=== PATIENT | female | born 1960 | race Caucasian/White ===

== ENCOUNTER 2017-11-07 17:37 | Emergency (ER) | payer MEDICARE, OTHER ==
[2017-11-07] MEDS: morphine 4 MG/ML VIAL IV (20:31)
[2017-11-07] MEDS: TAMSULOSIN (SR) 0.4 MG CAP PO (20:33)
[2017-11-07] MEDS: KETOROLAC 30 MG INJ IV (20:33)
[2017-11-07] MEDS: ONDANSETRON 4 MG INJ IV (20:33)
[2017-11-07] MEDS: SOD CHLORIDE 0.9% 1,000 ML IV (20:34)
[2017-11-07 20:37] LABS: ADD MAN DIFF? NO
[2017-11-07 20:39] LABS: BASOPHIL # 0.1 10^3/ul (0.0-0.1); BASOPHILS % 0.5 % (0.0-2.0); EOSINOPHILS # 0.2 10^3/ul (0.0-0.5); HEMATOCRIT 42.5 % (37.0-47.0); HEMOGLOBIN 14.3 g/dl (12.0-16.0); LYMPHOCYTES % 42.5 % (15.0-51.0); MEAN CORPUSCULAR HGB CONC 33.6 g/dl (32.0-37.0); MEAN CORPUSCULAR VOLUME 89.3 fl (82.0-101.0); MEAN PLATELET VOLUME 10.2 fl (7.4-10.4); MONOCYTE # 0.7 10^3/ul (0.3-0.9); MONOCYTES % 7.9 % (0.0-11.0); NEUTROPHIL # 4.4 10^3/ul (1.6-7.5); NEUTROPHILS % 46.8 % (39.0-77.0); PLATELET COUNT 221 10^3/UL (140-415); RED BLOOD COUNT 4.76 10^6/ul (4.20-5.40); RED CELL DISTRIBUTION WIDTH 13.7 % (11.5-14.5)
[2017-11-07 20:39] LABS: WHITE BLOOD COUNT 9.4 10^3/ul (4.8-10.8)
[2017-11-07 20:59] LABS: ALANINE AMINOTRANSFERASE 30 IU/L (13-69); ALBUMIN 4.6 g/dl (3.3-4.9); ALBUMIN/GLOBULIN RATIO 1.53; ALKALINE PHOSPHATASE 80 IU/L (42-121); AMYLASE 61 U/L (11-123); ANION GAP 17 (8-16); ASPARTATE AMINO TRANSFERASE 27 IU/L (15-46); BILIRUBIN,INDIRECT 0.2 mg/dl (0-1.1); BILIRUBIN,TOTAL 0.2 mg/dl (0.2-1.3); BLOOD UREA NITROGEN 13 mg/dl (7-20); CALCIUM 10.9 mg/dl (8.4-10.2); CARBON DIOXIDE 29 mmol/L (21-31); CHLORIDE 103 mmol/L (97-110); CREATININE 0.65 mg/dl (0.44-1.00); GLUCOSE 91 mg/dl (70-220); LIPASE 175 U/L (23-300); POTASSIUM 4.6 mmol/L (3.5-5.1); SODIUM 144 mmol/L (135-144); TOTAL PROTEIN 7.6 g/dl (6.1-8.1)
[2017-11-07 21:10] LABS: ADD UMIC YES; TROPONIN-I < 0.012 ng/ml (0.00-0.12); UR AMORPHOUS CRYSTAL FEW /HPF (NONE SEEN); UR ASCORBIC ACID NEGATIVE (NEGATIVE); UR BILIRUBIN (Dip) NEGATIVE (NEGATIVE); UR BLOOD (Dip) NEGATIVE (NEGATIVE); UR CLARITY CLOUDY (CLEAR); UR COLOR YELLOW (YELLOW); UR GLUCOSE (Dip) NEGATIVE (NEGATIVE); UR KETONES (Dip) NEGATIVE (NEGATIVE); UR LEUKOCYTE ESTERASE (Dip) 2+ Leu/ul (NEGATIVE); UR NITRITE (Dip) NEGATIVE (NEGATIVE); UR RBC 2 /HPF (0-5); UR SPECIFIC GRAVITY (Dip) 1.014 (1.003-1.030); UR SQUAMOUS EPITHELIAL CELL FEW /HPF (FEW); UR TOTAL PROTEIN (Dip) NEGATIVE (NEGATIVE); UR UROBILINOGEN (Dip) NEGATIVE (NEGATIVE); UR WBC 21 /HPF (0-5)
[2017-11-07] MEDS: CEFTRIAXONE 1 GM/50 ML (PMX) 50 ML IVPB (21:40)
== END 2017-11-07 22:26 | disposition home or self-care (01) ==
LOC: FTE 17:37
DX: N20.0 Calculus of kidney (principal); N30.00 Acute cystitis without hematuria; R00.2 Palpitations
CPT/HCPCS: 74176; 80053; 81001; 82150; 83690; 84484; 85025; 87086; 93005; 96374; 96375; 99285-25

== ENCOUNTER 2018-01-27 16:34 | Emergency (ER) | payer MEDICARE, OTHER ==
[2018-01-27 19:23] LABS: ADD MAN DIFF? NO
[2018-01-27 19:25] LABS: BASOPHIL # 0.1 10^3/ul (0.0-0.1); BASOPHILS % 0.6 % (0.0-2.0); EOSINOPHILS # 0.2 10^3/ul (0.0-0.5); EOSINOPHILS % 1.7 % (0.0-7.0); HEMATOCRIT 42.8 % (37.0-47.0); LYMPHOCYTES # 3.7 10^3/ul (0.8-2.9); LYMPHOCYTES % 36.2 % (15.0-51.0); MEAN CORPUSCULAR HEMOGLOBIN 30.9 pg (29.0-33.0); MEAN CORPUSCULAR VOLUME 88.2 fl (82.0-101.0); MEAN PLATELET VOLUME 10.6 fl (7.4-10.4); MONOCYTE # 0.8 10^3/ul (0.3-0.9); MONOCYTES % 8.2 % (0.0-11.0); NEUTROPHIL # 5.4 10^3/ul (1.6-7.5); NEUTROPHILS % 52.9 % (39.0-77.0); PLATELET COUNT 218 10^3/UL (140-415); RED BLOOD COUNT 4.85 10^6/ul (4.20-5.40); RED CELL DISTRIBUTION WIDTH 13.1 % (11.5-14.5)
[2018-01-27 19:25] LABS: WHITE BLOOD COUNT 10.1 10^3/ul (4.8-10.8)
[2018-01-27] MEDS: SOD CHLORIDE 0.9% 1,000 ML IV (19:26)
[2018-01-27] MEDS: KETOROLAC 15 MG INJ IV (19:27)
[2018-01-27] MEDS: OXYCODONE/ACETAMINOPHEN (5/325) TAB PO (19:27)
[2018-01-27 19:46] LABS: ALANINE AMINOTRANSFERASE 23 IU/L (13-69); ALBUMIN 4.7 g/dl (3.3-4.9); ALBUMIN/GLOBULIN RATIO 1.46; ALKALINE PHOSPHATASE 61 IU/L (42-121); ANION GAP 15 (8-16); ASPARTATE AMINO TRANSFERASE 30 IU/L (15-46); BILIRUBIN,INDIRECT 0.3 mg/dl (0-1.1); BILIRUBIN,TOTAL 0.3 mg/dl (0.2-1.3); BLOOD UREA NITROGEN 12 mg/dl (7-20); CALCIUM 10.3 mg/dl (8.4-10.2); CARBON DIOXIDE 28 mmol/L (21-31); CHLORIDE 106 mmol/L (97-110); CREATININE 0.54 mg/dl (0.44-1.00); GLUCOSE 92 mg/dl (70-220); LIPASE 158 U/L (23-300); POTASSIUM 3.9 mmol/L (3.5-5.1); SODIUM 145 mmol/L (135-144); TOTAL PROTEIN 7.9 g/dl (6.1-8.1)
[2018-01-27 19:50] LABS: ADD UMIC YES; UR ASCORBIC ACID 20 mg/dL (NEGATIVE); UR BILIRUBIN (Dip) NEGATIVE (NEGATIVE); UR BLOOD (Dip) 1+ mg/dL (NEGATIVE); UR CLARITY CLEAR (CLEAR); UR COLOR YELLOW (YELLOW); UR GLUCOSE (Dip) NEGATIVE (NEGATIVE); UR KETONES (Dip) NEGATIVE (NEGATIVE); UR LEUKOCYTE ESTERASE (Dip) TRACE Leu/ul (NEGATIVE); UR MUCUS FEW /HPF (NONE SEEN); UR NITRITE (Dip) NEGATIVE (NEGATIVE); UR RBC 4 /HPF (0-5); UR SPECIFIC GRAVITY (Dip) 1.016 (1.003-1.030); UR TOTAL PROTEIN (Dip) NEGATIVE (NEGATIVE); UR UROBILINOGEN (Dip) NEGATIVE (NEGATIVE); UR WBC 6 /HPF (0-5)
== END 2018-01-27 20:50 | disposition home or self-care (01) ==
LOC: E/R 16:34
DX: N30.01 Acute cystitis with hematuria (principal); I10 Essential (primary) hypertension; E66.9 Obesity, unspecified
CPT/HCPCS: 36415; 80053; 81001; 83690; 85025; 96374; 99284-25

== ENCOUNTER 2018-04-16 16:19 | Emergency (ER) | payer MEDICARE, OTHER ==
[2018-04-16] MEDS: SOD CHLORIDE 0.9% 1,000 ML IV (18:02)
[2018-04-16] MEDS: ONDANSETRON 4 MG INJ IV ×2 (18:03→19:29)
[2018-04-16] MEDS: morphine 4 MG/ML VIAL IV (18:03)
[2018-04-16 18:31] LABS: ADD MAN DIFF? NO
[2018-04-16 18:37] LABS: WHITE BLOOD COUNT 8.8 10^3/ul (4.8-10.8)
[2018-04-16 18:37] LABS: BASOPHIL # 0.1 10^3/ul (0.0-0.1); BASOPHILS % 0.6 % (0.0-2.0); EOSINOPHILS # 0.2 10^3/ul (0.0-0.5); EOSINOPHILS % 1.9 % (0.0-7.0); HEMOGLOBIN 15.2 g/dl (12.0-16.0); LYMPHOCYTES # 3.8 10^3/ul (0.8-2.9); LYMPHOCYTES % 43.3 % (15.0-51.0); MEAN CORPUSCULAR HEMOGLOBIN 30.4 pg (29.0-33.0); MEAN PLATELET VOLUME 10.7 fl (7.4-10.4); MONOCYTE # 0.7 10^3/ul (0.3-0.9); MONOCYTES % 7.6 % (0.0-11.0); NEUTROPHIL # 4.1 10^3/ul (1.6-7.5); NEUTROPHILS % 46.3 % (39.0-77.0); PLATELET COUNT 222 10^3/UL (140-415)
[2018-04-16 18:53] LABS: ALANINE AMINOTRANSFERASE 26 IU/L (13-69); ALBUMIN 4.7 g/dl (3.3-4.9); ALKALINE PHOSPHATASE 96 IU/L (42-121); AMYLASE 94 U/L (11-123); ANION GAP 15 (8-16); ASPARTATE AMINO TRANSFERASE 31 IU/L (15-46); BILIRUBIN,INDIRECT 0.4 mg/dl (0-1.1); BILIRUBIN,TOTAL 0.4 mg/dl (0.2-1.3); BLOOD UREA NITROGEN 14 mg/dl (7-20); CALCIUM 10.9 mg/dl (8.4-10.2); CARBON DIOXIDE 31 mmol/L (21-31); CHLORIDE 102 mmol/L (97-110); CREATININE 0.78 mg/dl (0.44-1.00); GLUCOSE 97 mg/dl (70-220); LIPASE 199 U/L (23-300); POTASSIUM 4.6 mmol/L (3.5-5.1); SODIUM 143 mmol/L (135-144); TOTAL PROTEIN 8.3 g/dl (6.1-8.1)
[2018-04-16 18:57] LABS: INR 0.82; PROTIME 11.4 Sec (11.9-14.9); PT RATIO 0.9
[2018-04-16 18:58] LABS: PARTIAL THROMBOPLASTIN TIME 30.5 Sec (25.0-35.0)
[2018-04-16 19:12] LABS: TROPONIN-I < 0.012 ng/ml (0.000-0.120)
[2018-04-16 19:13] LABS: ADD UMIC YES; UR ASCORBIC ACID NEGATIVE (NEGATIVE); UR BACTERIA FEW /HPF (NONE SEEN); UR BILIRUBIN (Dip) NEGATIVE (NEGATIVE); UR BLOOD (Dip) NEGATIVE (NEGATIVE); UR CLARITY CLEAR (CLEAR); UR COLOR YELLOW (YELLOW); UR GLUCOSE (Dip) NEGATIVE (NEGATIVE); UR KETONES (Dip) NEGATIVE (NEGATIVE); UR LEUKOCYTE ESTERASE (Dip) 1+ Leu/ul (NEGATIVE); UR NITRITE (Dip) NEGATIVE (NEGATIVE); UR RBC 1 /HPF (0-5); UR SPECIFIC GRAVITY (Dip) 1.008 (1.003-1.030); UR TOTAL PROTEIN (Dip) NEGATIVE (NEGATIVE); UR UROBILINOGEN (Dip) NEGATIVE (NEGATIVE); UR WBC 5 /HPF (0-5)
[2018-04-16] MEDS: LIDOCAINE/MYLANTA 40 ML BTL PO (19:27)
[2018-04-16] MEDS: HYDROmorphONE 1 MG/ML SYG IV (19:28)
[2018-04-16] MEDS: BELLADONNA/PHENOBARBITAL TAB PO (19:28)
== END 2018-04-16 21:34 | disposition home or self-care (01) ==
LOC: E/R 21:34
DX: N20.0 Calculus of kidney (principal); R40.2142 Coma scale, eyes open, spontaneous, at arrival to emergency department; R40.2362 Coma scale, best motor response, obeys commands, at arrival to emergency department; Z96.642 Presence of left artificial hip joint
CPT/HCPCS: 74176; 80053; 81001; 82150; 83690; 84484; 85025; 85610; 85730; 93005; 96374; 96375; 99285-25

== ENCOUNTER 2018-09-10 10:33 | Emergency (ER) | payer MEDICARE, OTHER ==
[2018-09-10] MEDS: IBUPROFEN 600 MG TAB PO (11:03)
[2018-09-10 11:25] LABS: ADD MAN DIFF? NO; BASOPHIL # 0.1 10^3/ul (0.0-0.1); BASOPHILS % 0.6 % (0.0-2.0); EOSINOPHILS # 0.7 10^3/ul (0.0-0.5); EOSINOPHILS % 6.3 % (0.0-7.0); LYMPHOCYTES # 3.6 10^3/ul (0.8-2.9); MEAN CORPUSCULAR HEMOGLOBIN 30.5 pg (29.0-33.0); MEAN CORPUSCULAR HGB CONC 33.3 g/dl (32.0-37.0); MEAN CORPUSCULAR VOLUME 91.5 fl (82.0-101.0); MONOCYTE # 0.6 10^3/ul (0.3-0.9); MONOCYTES % 5.9 % (0.0-11.0); NEUTROPHIL # 5.6 10^3/ul (1.6-7.5); NEUTROPHILS % 52.8 % (39.0-77.0); PLATELET COUNT 203 10^3/UL (140-415); RED BLOOD COUNT 4.92 10^6/ul (4.20-5.40); RED CELL DISTRIBUTION WIDTH 12.6 % (11.5-14.5)
[2018-09-10 11:25] LABS: WHITE BLOOD COUNT 10.6 10^3/ul (4.8-10.8)
[2018-09-10 11:48] LABS: ADD UMIC YES; UR ASCORBIC ACID NEGATIVE (NEGATIVE); UR BACTERIA MANY /HPF (NONE SEEN); UR BILIRUBIN (Dip) NEGATIVE (NEGATIVE); UR BLOOD (Dip) NEGATIVE (NEGATIVE); UR CLARITY CLOUDY (CLEAR); UR COLOR YELLOW (YELLOW); UR GLUCOSE (Dip) NEGATIVE (NEGATIVE); UR KETONES (Dip) NEGATIVE (NEGATIVE); UR LEUKOCYTE ESTERASE (Dip) 3+ Leu/ul (NEGATIVE); UR MUCUS FEW /HPF (NONE SEEN); UR NITRITE (Dip) POSITIVE (NEGATIVE); UR RBC 3 /HPF (0-5); UR SPECIFIC GRAVITY (Dip) 1.016 (1.003-1.030); UR SQUAMOUS EPITHELIAL CELL FEW /HPF (FEW); UR TOTAL PROTEIN (Dip) NEGATIVE (NEGATIVE); UR UROBILINOGEN (Dip) NEGATIVE (NEGATIVE); UR WBC > 182 /HPF (0-5)
[2018-09-10 12:03] LABS: ALANINE AMINOTRANSFERASE 22 IU/L (13-69); ALBUMIN 4.4 g/dl (3.3-4.9); ALBUMIN/GLOBULIN RATIO 1.46; ALKALINE PHOSPHATASE 74 IU/L (42-121); ANION GAP 9 (5-13); ASPARTATE AMINO TRANSFERASE 23 IU/L (15-46); BILIRUBIN,INDIRECT 0.6 mg/dl (0-1.1); BILIRUBIN,TOTAL 0.6 mg/dl (0.2-1.3); BLOOD UREA NITROGEN 10 mg/dl (7-20); CALCIUM 10.6 mg/dl (8.4-10.2); CARBON DIOXIDE 29 mmol/L (21-31); CHLORIDE 106 mmol/L (97-110); CREATININE 0.61 mg/dl (0.44-1.00); Estimated GFR > 60 mL/min (>60); GLUCOSE 97 mg/dl (70-220); LIPASE 109 U/L (23-300); POTASSIUM 4.1 mmol/L (3.5-5.1); SODIUM 144 mmol/L (135-144); TOTAL PROTEIN 7.4 g/dl (6.1-8.1)
== END 2018-09-10 12:39 | disposition home or self-care (01) ==
LOC: E/R 10:33
DX: N39.0 Urinary tract infection, site not specified (principal)
CPT/HCPCS: 36415; 71045; 76775; 80053; 81001; 83690; 85025; 87086; 99285-25

== ENCOUNTER 2019-06-25 15:02 | Emergency (ER) | payer MEDICARE, OTHER ==
[2019-06-25] MEDS: SOD CHLORIDE 0.9% 1,000 ML IV (18:34)
[2019-06-25] MEDS: KETOROLAC 15 MG INJ IV (18:34)
[2019-06-25] MEDS: ONDANSETRON 4 MG INJ IV (18:34)
[2019-06-25] MEDS: morphine 4 MG/ML VIAL IV (18:34)
[2019-06-25 18:35] LABS: ADD MAN DIFF? NO
[2019-06-25 18:47] LABS: BASOPHIL # 0.1 10^3/ul (0.0-0.1); BASOPHILS % 0.6 % (0.0-2.0); EOSINOPHILS # 0.1 10^3/ul (0.0-0.5); EOSINOPHILS % 1.1 % (0.0-7.0); HEMATOCRIT 42.3 % (37.0-47.0); HEMOGLOBIN 14.2 g/dl (12.0-16.0); LYMPHOCYTES # 3.2 10^3/ul (0.8-2.9); MEAN CORPUSCULAR HGB CONC 33.6 g/dl (32.0-37.0); MEAN CORPUSCULAR VOLUME 89.2 fl (82.0-101.0); MEAN PLATELET VOLUME 10.6 fl (7.4-10.4); MONOCYTE # 0.5 10^3/ul (0.3-0.9); MONOCYTES % 6.1 % (0.0-11.0); NEUTROPHIL # 4.5 10^3/ul (1.6-7.5); NEUTROPHILS % 54.1 % (39.0-77.0); PLATELET COUNT 189 10^3/UL (140-415); RED BLOOD COUNT 4.74 10^6/ul (4.20-5.40); RED CELL DISTRIBUTION WIDTH 12.9 % (11.5-14.5)
[2019-06-25 18:47] LABS: WHITE BLOOD COUNT 8.4 10^3/ul (4.8-10.8)
[2019-06-25 19:14] LABS: ALANINE AMINOTRANSFERASE 18 IU/L (13-69); ALBUMIN 4.2 g/dl (3.3-4.9); ALKALINE PHOSPHATASE 68 IU/L (42-121); ANION GAP 9 (5-13); ASPARTATE AMINO TRANSFERASE 23 IU/L (15-46); BILIRUBIN,INDIRECT 0.4 mg/dl (0-1.1); BILIRUBIN,TOTAL 0.4 mg/dl (0.2-1.3); BLOOD UREA NITROGEN 12 mg/dl (7-20); CALCIUM 10.7 mg/dl (8.4-10.2); CARBON DIOXIDE 27 mmol/L (21-31); CHLORIDE 106 mmol/L (97-110); CREATININE 0.64 mg/dl (0.44-1.00); Estimated GFR > 60 mL/min (>60); GLUCOSE 119 mg/dl (70-220); LIPASE 87 U/L (23-300); POTASSIUM 3.4 mmol/L (3.5-5.1); SODIUM 142 mmol/L (135-144)
[2019-06-25 20:13] LABS: ADD UMIC YES; UR ASCORBIC ACID 20 mg/dL (NEGATIVE); UR BACTERIA MODERATE /HPF (NONE SEEN); UR BILIRUBIN (Dip) NEGATIVE (NEGATIVE); UR BLOOD (Dip) NEGATIVE (NEGATIVE); UR CLARITY CLOUDY (CLEAR); UR COLOR YELLOW (YELLOW); UR GLUCOSE (Dip) NEGATIVE (NEGATIVE); UR KETONES (Dip) NEGATIVE (NEGATIVE); UR LEUKOCYTE ESTERASE (Dip) 3+ Leu/ul (NEGATIVE); UR MUCUS FEW /HPF (NONE SEEN); UR NITRITE (Dip) POSITIVE (NEGATIVE); UR RBC 5 /HPF (0-5); UR SPECIFIC GRAVITY (Dip) 1.016 (1.003-1.030); UR SQUAMOUS EPITHELIAL CELL FEW /HPF (FEW); UR TOTAL PROTEIN (Dip) NEGATIVE (NEGATIVE); UR UROBILINOGEN (Dip) NEGATIVE (NEGATIVE); UR WBC > 182 /HPF (0-5)
[2019-06-25] MEDS: CEFTRIAXONE 1 GM/50 ML (PMX) 50 ML IVPB (21:07)
== END 2019-06-25 21:27 | disposition home or self-care (01) ==
LOC: E/R 15:02
DX: N20.0 Calculus of kidney (principal); Z96.642 Presence of left artificial hip joint
CPT/HCPCS: 36415; 74176; 80053; 81001; 83690; 85025; 87086; 96374; 96375; 99285-25